=== PATIENT | female | born 1940 | race Two or more races ===

== ENCOUNTER 2020-02-05 13:57 | Emergency (ER) | payer OTHER ==
[~2020-02-05] VITALS: Ht 162.6 cm; Wt 81.6 kg
[2020-02-05] MEDS ORDERED: COZAAR50 MG PO (14:35)
[2020-02-05] MEDS ORDERED: SYNTHROID100 MCG PO (14:35)
[2020-02-05] MEDS ORDERED: LIPITOR20 MG PO (14:35)
[2020-02-05] MEDS ORDERED: SYNTHROID88 MCG PO (14:35)
[2020-02-05] MEDS ORDERED: OMEGA 3 1,0001 EACH PO (14:36)
[2020-02-05] MEDS ORDERED: CALTRATE 600+D1 EAC1 PO (14:36)
[2020-02-05] MEDS ORDERED: CENTRUM ADULTS1 EACH PO (14:36)
[2020-02-05] MEDS ORDERED: CIDAFLEX TABLE1 EACH PO (14:37)
[2020-02-05] MEDS ORDERED: VITAMIN C500 MG PO (14:37)
[2020-02-05] MEDS ORDERED: PROTONIX40 MG PO (14:38)
[2020-02-05] MEDS ORDERED: VITAMIN D3 COM1 EACH PO (14:38)
== END 2020-02-05 17:07 | disposition home or self-care (01) ==
LOC: ER 13:57
DX: S82.032A Displaced transverse fracture of left patella, initial encounter for closed fracture (principal); W10.8XXA Fall (on) (from) other stairs and steps, initial encounter; Y93.89 Activity, other specified; Y92.018 Other place in single-family (private) house as the place of occurrence of the external cause; Y99.8 Other external cause status